=== PATIENT | male | born 1995 | race Caucasian/White ===

== ENCOUNTER 2018-02-26 02:51 | Emergency (ER) | payer SELFPAY ==
[2018-02-26 02:56] VITALS: BP 125/71
--- NOTE | 2018-02-26 02:58 | EDPHY ---
H & P Time Seen by Provider: 02/26/18 02:55 HPI/ROS: HPI CHIEF COMPLAINT: Alcohol Intoxication , medical clearance for residential HISTORY OF PRESENT ILLNESS: Patient is a 22-year-old male, presents emergency room alcohol intoxication. He is in police custody. They bring him here to the ER for medical clearance for residential. He apparently may contact with police outside. No trauma reported. Presents emergency room with police and [facility] in handcuffs, intoxicated with alcohol. There is no reported trauma or injury. They would like medical clearance to go to residential. Past Medical History: Patient reports no medical history Past Surgical History: The no surgical history Social History: Endorses alcohol this evening multiple beers. Family History: Noncontributory ROS REVIEW OF SYSTEMS: A comprehensive 10 point review of systems is otherwise negative aside from elements mentioned in the history of present illness. Exam Constitutional Intoxicated, triage nursing summary reviewed, vital signs reviewed, Sleepy, smells of alcohol Eyes normal conjunctivae and sclera, horizontal beating nystagmus consistent acute alcohol intoxication, otherwise pupils equal and react to light HENT normal inspection, atraumatic, moist mucus membranes, no epistaxis, neck supple/ no meningismus, no raccoon eyes. Respiratory clear to auscultation bilaterally, normal breath sounds, no respiratory distress, no wheezing. Cardiovascular rate normal, regular rhythm, no murmur, no edema, distal pulses normal. Gastrointestinal soft, non-tender, no rebound, no guarding, normal bowel sounds, no distension, no pulsatile mass. Genitourinary no CVA tenderness. Musculoskeletal no midline vertebral tenderness, full range of motion, no calf swelling, no tenderness of extremities, no meningismus, good pulses, neurovascularly intact. Skin pink, warm, & dry, no rash, skin atraumatic. Neurologic sleepy, intoxicated with alcohol,, alert and oriented x 3, AAOx3, moves all 4 extremities equally, motor intact, sensory intact, CN II-XII intact , , normal vision, normal speech. Psychiatric normal mood/affect. Heme/Lymph/Immune no lymphadenopathy. Differential Diagnosis: Includes but is not limited to in a particular order acute alcohol intoxication, alcohol abuse, dehydration, electrolyte abnormality , nausea vomiting from acute alcohol intoxication Medical Decision Making: Plan for this patient make sure he can't ambulate appropriately with a safe gait. No trauma on head to toe exam. Re-evaluation: 0258: Patient ambulated well throughout the emergency room without difficulty. He is medically cleared to go to residential. Vital signs are stable. He answers my questions and reports that he drank a large amount of alcohol this evening. Source: Patient, EMS - Medical/Surgical History Hx Asthma: No Hx Chronic Respiratory Disease: No Hx Diabetes: No Hx Cardiac Disease: No Hx Renal Disease: No Hx Cirrhosis: No Hx Alcoholism: No Hx HIV/AIDS: No Hx Splenectomy or Spleen Trauma: No Other PMH: DENIES Allergies/Adverse Reactions: No Known Allergies Allergy (Unverified 11/02/13 00:11) Home Medications: Medication Instructions Recorded Elodiattjosep 11/02/13 Departure - Departure Disposition: Home, Routine, Self-Care Clinical Impression: Alcohol intoxication Condition: Good Instructions: Alcohol Intoxication (ED), Abuse of Alcohol (ED) Additional Instructions: 1. Medically cleared for residential. Referrals: Patient,NotPresent [Primary Care Provider] - As per Instructions
== END 2018-02-26 03:04 | disposition home or self-care (01) ==
LOC: EDUNIT#
DX: F10.129 Alcohol abuse with intoxication, unspecified (principal)

== ENCOUNTER 2018-03-24 20:49 | Emergency (ER) | payer SELFPAY ==
[2018-03-24] MEDS ORDERED: NS 1,000 ML IV ONE (21:02)
[2018-03-24] MEDS ORDERED: NS 500 ML IV ONE (21:39)
--- NOTE | 2018-03-24 21:41 | EDPHY ---
H & P Smoking Status: Never smoked Time Seen by Provider: 03/24/18 20:58 HPI/ROS: CHIEF COMPLAINT: Meth amphetamine abuse HISTORY OF PRESENT ILLNESS: Patient is a 22-year-old male who is brought in the emergency department with reported methamphetamine use. Patient was seen acting strangely in public. He was subsequently brought to the emergency department. Patient reports methamphetamine use. On the triage sheet it states the patient has general malaise. However, when I interact with the patient he appears to be altered due to drug use and is not answer my questions appropriately. REVIEW OF SYSTEMS: Unable to obtain due to mental status (Katt Adam) Past Medical/Surgical History: Includes methamphetamine abuse (Katt Adam) Physical Exam: 37.4, 133/88, 113, 20, 97% on room air GENERAL: No acute distress, alert. Staring off into space. Answering questions inappropriately. HEENT: Eyes normal to inspection, normal pharynx, no signs of dehydration. NECK: [No thyromegaly, no lymphadenopathy, supple. RESPIRATORY: Clear to auscultation bilaterally, no rales, rhonchi or wheezing. CVS: Mild tachycardia with regular rhythm, no rubs, murmurs, or gallops. ABDOMEN: Soft, nontender, nondistended, no organomegaly. BACK: Normal to inspection, no CVA tenderness. SKIN: Normal color, no rash, warm, dry. No pallor. EXTREMITIES: No pedal edema, no calf tenderness, no Homans sign or cords, no joint swelling. NEURO/PSYCH: [Alert and oriented x0 (does not answer questions), calm. Moves all extremities appropriately. (Katt Adam S) Constitutional: Initial Vital Signs Temperature (C) 37.4 C 03/24/18 20:50 Heart Rate 113 H 03/24/18 20:50 Respiratory Rate 20 03/24/18 20:50 Blood Pressure 133/88 H 03/24/18 20:50 O2 Sat (%) 97 03/24/18 20:50 O2 Delivery Mode Room Air Allergies/Adverse Reactions: No Known Allergies Allergy (Unverified 03/24/18 20:59) Home Medications: Medication Instructions Recorded Meth And Herione 03/24/18 Medical Decision Making ED Course/Re-evaluation: In the emergency department I evaluated the patient. IV was placed. Laboratory studies were obtained. I reviewed the patient's laboratory studies. His potassium was low at 3.0. Supplementation was written. Patient's creatinine was normal 1.0. Patient's white count is mildly elevated at 12. Hematocrit is normal 47.9. Platelet count is 294. PD is present in the emergency department evaluated the patient. 1100: Patient is signed out to Dr. Nolen at change of shift. (Katt Adam) 12:10 a.m.- The patient was able to drink the potassium which was ordered for his potassium of 3.0. He was able to get out of the bed to walk to the bathroom though still was somewhat disoriented and agitated likely related to his methamphetamine use. He is on [facility] hold at this point and we will hope to discharge him there. 3:53 a.m.- The patient is now more awake and alert. He is oriented and less agitated. He does have difficulty walking because of bilateral foot pain. Upon further questioning, yesterday, the patient was walking for several hours without any shoes on on a hot surface and likely is suffering from some superficial newsome. He does not have any blistering on exam. He does not have any signs of infection. We will provide him with a pair of shoes and plan on discharging him to the [facility]. (Haylie Nolen) Differential Diagnosis: My differential includes but is not limited to methamphetamine abuse, alcohol abuse, closed-head injury, electrolyte abnormality, sugar abnormality, ACS ( Katt Adam) - Data Points Laboratory Results: Laboratory Results 03/24/18 20:55 03/24/18 20:55 03/24/18 03/24/18 20:55 20:55 WBC 12.00 10^3/uL H 10^3/uL (3.80-9.50) RBC 6.01 10^6/uL 10^6/uL (4.40-6.38) Hgb 18.2 g/dL H g/dL (13.7-17.5) Hct 47.9 % % (40.0-51.0) MCV 79.7 fL L fL (81.5-99.8) MCH 30.3 pg pg (27.9-34.1) MCHC 38.0 g/dL H g/dL (32.4-36.7) RDW 12.3 % % (11.5-15.2) Plt Count 294 10^3/uL 10^3/uL (150-400) MPV 10.6 fL fL (8.7-11.7) Neut % (Auto) 72.8 % % (39.3-74.2) Lymph % (Auto) 15.3 % % (15.0-45.0) [place] % (Auto) 10.7 % % (4.5-13.0) Eos % (Auto) 0.3 % L % (0.6-7.6) Baso % (Auto) 0.5 % % (0.3-1.7) Nucleat RBC Rel Count 0.0 % % (0.0-0.2) Absolute Neuts (auto) 8.74 10^3/uL H 10^3/uL (1.70-6.50) Absolute Lymphs (auto) 1.84 10^3/uL 10^3/uL (1.00-3.00) Absolute Monos (auto) 1.28 10^3/uL H 10^3/uL (0.30-0.80) Absolute Eos (auto) 0.03 10^3/uL 10^3/uL (0.03-0.40) Absolute Basos (auto) 0.06 10^3/uL 10^3/uL (0.02-0.10) Absolute Nucleated RBC 0.00 10^3/uL 10^3/uL (0-0.01) Immature Gran % 0.4 % % (0.0-1.1) Immature Gran # 0.05 10^3/uL 10^3/uL (0.00-0.10) Platelet Estimate ADEQUATE (ADEQ) Polychromasia 1+ H Basophilic Stippling 1+ H Tear Drop Cells 1+ H Smear Review By Pending Sodium 142 mEq/L mEq/L (135-145) Potassium 3.0 mEq/L L mEq/L (3.3-5.0) Chloride 108 mEq/L mEq/L (97-110) Carbon Dioxide 16 mEq/l L mEq/l (22-31) Anion Gap 18 mEq/L H mEq/L (8-16) BUN 9 mg/dL mg/dL (7-23) Creatinine 1.0 mg/dL mg/dL (0.7-1.3) Estimated GFR > 60 Glucose 124 mg/dL H mg/dL (70-100) Calcium 10.5 mg/dL H mg/dL (8.5-10.4) Medications Given: Discontinued Medications Sodium Chloride (Ns) 1,000 mls @ 0 mls/hr IV ONCE ONE PRN Reason: Wide Open Stop: 03/24/18 21:03 Last Admin: 03/24/18 21:02 Dose: 1,000 mls Sodium Chloride (Ns) 500 mls @ 1,000 mls/hr IV EDNOW ONE PRN Reason: Protocol Stop: 03/24/18 22:08 Last Admin: 03/24/18 21:50 Dose: 500 mls Potassium Chloride (Potassium Chloride Oral Liquid) 40 meq PO EDNOW ONE Stop: 03/24/18 22:48 Last Admin: 03/24/18 22:59 Dose: 40 meq Departure - Departure Disposition: Home, Routine, Self-Care Clinical Impression: Methamphetamine abuse Altered mental status Qualifiers: Altered mental status type: disorientation Qualified Code(s): R41.0 - Disorientation, unspecified Condition: Good Instructions: Methamphetamine Abuse (ED) Referrals: [facility] [Outside] - As per Instructions
[2018-03-24 22:45] LABS: PLATELET COUNT 294 10^3/uL (150-400)
[2018-03-24] MEDS ORDERED: POTASSIUM CL 20 MEQ/15 ML UDCUP PO ONE (22:47)
[2018-03-25 04:12] VITALS: BP 114/73
== END 2018-03-25 04:29 | disposition home or self-care (01) ==
LOC: EDUNIT#
DX: F15.10 Other stimulant abuse, uncomplicated (principal); R41.0 Disorientation, unspecified; E86.9 Volume depletion, unspecified

== ENCOUNTER 2018-07-03 11:59 | Emergency (ER) | payer SELFPAY ==
--- NOTE | 2018-07-03 12:20 | EDPHY ---
H & P Time Seen by Provider: 07/03/18 12:10 HPI/ROS: CHIEF COMPLAINT: Medical screening for incarceration HISTORY OF PRESENT ILLNESS: 23-year-old homeless male with prior history of methamphetamine use (per old medical record review by myself) arrives via police after a bystander called 911 for a welfare check because the patient was sleeping in the sun on a hot day today with a leather jacket on. Per police he has numerous warrants for arrest and was therefore brought to the ER. Patient has no complaints of pain or discomfort. Denies history of trauma. He is able to provide me his name however did take some approximately 30 sec to answer me. Takes him approximately 30 sec to tell me what city he is in. He does not know year it is or where he was born. Does not know last time use methamphetamine. PRIMARY CARE PROVIDER: None REVIEW OF SYSTEMS: 10 systems reviewed and negative with the exception of the elements mentioned in the history of present illness PAST MEDICAL & SURGICAL HISTORY: No pertinent medical or surgical history SOCIAL HISTORY: Homeless. Prior documented methamphetamine history PHYSICAL EXAM (Prior to examination, patient consented to physical exam, hands were washed and my usual and customary physical exam procedures followed) 1) GENERAL: Foul-smelling, slow to answer questions, calm Appears to be in no acute distress. 2) HEAD: Normocephalic, atraumatic 3) HEENT: Pupils equal, round, reactive to light bilaterally. Sclera anicteric. Nasopharynx, oropharynx, clear, no lesions. MoistDry mucous membranes. Ears bilaterally with normal tympanic membranes. No raccoon eyes. No Hernandez sign. No rhinorrhea. No otorrhea. No hemotympanum. 4) NECK: Full range of motion, no meningeal signs. No midline C-spine pain. No evidence of trauma. 5) LUNGS: Clear auscultation bilaterally, no wheezes, no rhonchi, no retractions. 6) HEART: Regular rate and rhythm, no murmur, no heave, no gallop. 7) ABDOMEN: No guarding, no rebound, no focal tenderness, negative McBurney's, negative Hines's, negative Rovsing's, negative peritoneal sign, 8) MUSCULOSKELETAL: Moving all extremities, no focal areas of tenderness, no obvious trauma. No peripheral edema or discoloration. 9) BACK: No CVA tenderness, no midline vertebral tenderness, no fluctuance, no step-off, no obvious trauma, no visual or palpable abnormality. 10) SKIN: No rash, no petechiae. 11) Psychiatric: Patient is oriented X person and place only, slow to answer questions. 12) NEURO: Awake, alert, and oriented to person, place and time. Answers questions appropriately. There were no obvious focal neurologic abnormalities. No cerebellar dysfunction. Cranial nerves 2 through to 12 intact. Normal steady gait. Upper and lower extremities bilaterally with strength 5 / 5, reflexes 2+. DIFFERENTIAL DIAGNOSIS: In no particular orderincluding but not limited to hypoglycemia, infectious process, electrolyte abnormality, head injury and intoxicants. Constitutional: Initial Vital Signs Temperature (C) 36.7 C 07/03/18 12:29 Heart Rate 103 H 07/03/18 12:29 Respiratory Rate 16 07/03/18 12:29 Blood Pressure 150/100 H 07/03/18 12:29 O2 Sat (%) 98 07/03/18 12:29 O2 Delivery Mode Room Air Medical Decision Making - Diagnostics Imaging Results: Imaging Impressions Head CT 07/03/18 13:01 Impression: No acute intracranial findings. If symptoms persist and clinical suspicion warrants, consider MRI. Findings discussed with Alex Olvera 07/03/2018 at 14:36. ED Course/Re-evaluation: 12:17 p.m.: At this time the patient is not medically cleared for incarceration. He has altered mental status, aware only of the City, however unaware of what year he was born, year it is. He has no evidence of trauma no abnormal physical exam findings beyond his altered mental status. Will obtain diagnostic studies observe patient for period of time in the ER. 1:14 p.m.: Patient has increasing agitation, paranoia. I observed him in the room talking to his feet "Don't run out of here on me feet". Will administer IV Haldol in order to obtain CT imaging. 2:[address] head interpreted by radiologist negative 2:40 p.m.: Re-evaluation, patient is sleeping calm and cooperative. Patient easily woken. Answering questions appropriately. I think the patient would benefit from mental health evaluation for psychosis possibly related to methamphetamine abuse. Police still at bedside. Patient denies suicidal or homicidal ideation. 2:58 p.m.: Patient is sleeping. Spoke with mental health territory sales representative in the emergency department who informed me that mental health services are still available at the prison. I recommended that the patient receive a mental health evaluation at the prison , and has been written on his aftercare instructions and conveyed to the prison nurse and the law enforcement officials with the patient. Patient will be going to prison in custody of police. - Data Points Laboratory Results: Laboratory Results 07/03/18 12:25 07/03/18 12:25 07/03/18 07/03/18 07/03/18 12:38 12:30 12:25 WBC RBC Hgb Hct MCV MCH MCHC RDW Plt Count MPV Neut % (Auto) Lymph % (Auto) [place] % (Auto) Eos % (Auto) Baso % (Auto) Nucleat RBC Rel Count Absolute Neuts (auto) Absolute Lymphs (auto) Absolute Monos (auto) Absolute Eos (auto) Absolute Basos (auto) Absolute Nucleated RBC Immature Gran % Immature Gran # Sodium 140 mEq/L mEq/L (135-145) Potassium 3.8 mEq/L mEq/L (3.3-5.0) Chloride 108 mEq/L mEq/L (97-110) Carbon Dioxide 24 mEq/l mEq/l (22-31) Anion Gap 8 mEq/L mEq/L (8-16) BUN 13 mg/dL mg/dL (7-23) Creatinine 0.7 mg/dL mg/dL (0.7-1.3) Estimated GFR > 60 Glucose 94 mg/dL mg/dL (70-100) Calcium 9.4 mg/dL mg/dL (8.5-10.4) Total Bilirubin 0.8 mg/dL mg/dL (0.1-1.4) Conjugated Bilirubin 0.2 mg/dL mg/dL (0.0-0.5) Unconjugated Bilirubin 0.6 mg/dL mg/dL (0.0-1.1) AST 18 IU/L IU/L (17-59) ALT 31 IU/L IU/L (21-72) Alkaline Phosphatase 56 IU/L IU/L (38-126) Ammonia 16.0 uMOL/L uMOL/L (9.0-30.0) Creatine Kinase 80 IU/L IU/L (0-224) Total Protein 7.1 g/dL g/dL (6.3-8.2) Albumin 4.2 g/dL g/dL (3.5-5.0) Salicylates < 1.0 mg/dL L mg/dL (2.0-20.0) Urine Opiates Screen NEGATIVE (NEGATIVE) Acetaminophen < 10 mcg/mL L mcg/mL (10-30) Urine Barbiturates NEGATIVE (NEGATIVE) Ur Phencyclidine Scrn NEGATIVE (NEGATIVE) Ur Amphetamine Screen NEGATIVE (NEGATIVE) U Benzodiazepines Scrn NEGATIVE (NEGATIVE) Urine Cocaine Screen NEGATIVE (NEGATIVE) U Marijuana (THC) Screen NEGATIVE (NEGATIVE) Ethyl Alcohol < 10 mg/dL mg/dL (0-10) 07/03/18 12:25 WBC 7.92 10^3/uL 10^3/uL (3.80-9.50) RBC 5.39 10^6/uL 10^6/uL (4.40-6.38) Hgb 16.5 g/dL g/dL (13.7-17.5) Hct 45.0 % % (40.0-51.0) MCV 83.5 fL fL (81.5-99.8) MCH 30.6 pg pg (27.9-34.1) MCHC 36.7 g/dL g/dL (32.4-36.7) RDW 11.9 % % (11.5-15.2) Plt Count 236 10^3/uL 10^3/uL (150-400) MPV 9.9 fL fL (8.7-11.7) Neut % (Auto) 60.7 % % (39.3-74.2) Lymph % (Auto) 28.2 % % (15.0-45.0) [place] % (Auto) 8.1 % % (4.5-13.0) Eos % (Auto) 2.3 % % (0.6-7.6) Baso % (Auto) 0.6 % % (0.3-1.7) Nucleat RBC Rel Count 0.0 % % (0.0-0.2) Absolute Neuts (auto) 4.81 10^3/uL 10^3/uL (1.70-6.50) Absolute Lymphs (auto) 2.23 10^3/uL 10^3/uL (1.00-3.00) Absolute Monos (auto) 0.64 10^3/uL 10^3/uL (0.30-0.80) Absolute Eos (auto) 0.18 10^3/uL 10^3/uL (0.03-0.40) Absolute Basos (auto) 0.05 10^3/uL 10^3/uL (0.02-0.10) Absolute Nucleated RBC 0.00 10^3/uL 10^3/uL (0-0.01) Immature Gran % 0.1 % % (0.0-1.1) Immature Gran # 0.01 10^3/uL 10^3/uL (0.00-0.10) Sodium Potassium Chloride Carbon Dioxide Anion Gap BUN Creatinine Estimated GFR Glucose Calcium Total Bilirubin Conjugated Bilirubin Unconjugated Bilirubin AST ALT Alkaline Phosphatase Ammonia Creatine Kinase Total Protein Albumin Salicylates Urine Opiates Screen Acetaminophen Urine Barbiturates Ur Phencyclidine Scrn Ur Amphetamine Screen U Benzodiazepines Scrn Urine Cocaine Screen U Marijuana (THC) Screen Ethyl Alcohol Medications Given: Discontinued Medications Haloperidol Lactate (Haldol Injection) 5 mg IVP EDNOW ONE Stop: 07/03/18 13:14 Last Admin: 07/03/18 13:25 Dose: 5 mg Lorazepam (Ativan Injection) 1 mg IVP EDNOW ONE Stop: 07/03/18 13:15 Last Admin: 07/03/18 15:26 Dose: Not Given Olanzapine (Zyprexa Zydis) 10 mg PO EDNOW ONE Stop: 07/03/18 13:04 Last Admin: 07/03/18 15:26 Dose: Not Given Departure - Departure Disposition: Law Enforcement/Court/Penitentiary Clinical Impression: Psychosis Qualifiers: Psychosis type: other Qualified Code(s): F28 - Other psychotic disorder not due to a substance or known physiological condition Condition: Good Instructions: Brief Psychotic Disorder (ED) Additional Instructions: I recommend you have a mental health evaluation while you are in prison. Referrals: NONE *PRIMARY CARE P,. [Primary Care Provider] - As per Instructions
[2018-07-03 12:47] LABS: PLATELET COUNT 236 10^3/uL (150-400)
[2018-07-03] MEDS ORDERED: OLANZapine DISINTEGR 10 MG TAB PO ONE (13:03)
[2018-07-03 13:11] LABS: CREATINE KINASE 80 IU/L (0-224)
[2018-07-03] MEDS ORDERED: HALOPERIDOL LACT 5 MG/ML INJ IVP ONE (13:13)
[2018-07-03] MEDS ORDERED: LORazepam 2 MG/ML INJ IVP ONE (13:14)
[2018-07-03 15:17] VITALS: BP 136/80
== END 2018-07-03 15:27 ==
LOC: EDBD 11:59 → MERGE 11:59
DX: F28 Other psychotic disorder not due to a substance or known physiological condition (principal)
CPT/HCPCS: 80305; 96374; G0480; J1630

== ENCOUNTER 2018-12-10 13:31 | Emergency (ER) | payer MEDICAID | END 2018-12-10 13:55 | disposition left against medical advice (07) | DX: Z53.21 Procedure and treatment not carried out due to patient leaving prior to being seen by health care provider (principal) ==

== ENCOUNTER 2018-12-10 14:23 | Emergency (ER) | payer MEDICAID ==
[2018-12-10 15:02] VITALS: BP 155/85
== END 2018-12-10 16:00 | disposition left against medical advice (07) ==
DX: Z53.21 Procedure and treatment not carried out due to patient leaving prior to being seen by health care provider (principal)

== ENCOUNTER 2019-03-14 15:54 | Emergency (ER) | payer MEDICAID | END 2019-03-14 16:19 | disposition home or self-care (01) ==